=== PATIENT | female | born 1965 | race Caucasian/White ===

== ENCOUNTER 2017-11-29 09:39 | Outpatient (CLI) | payer BC ==
[2017-11-29 10:12] LABS: BASOPHILS % 0.3 (0.0-1.5); MEAN CORPUSCULAR HEMOGLOBIN 27.1 pg (28.0-34.0); MEAN CORPUSCULAR VOLUME 90.2 fl (80.0-100.0); MONOCYTES % 3.7 % (0.0-11.0); NEUTROPHILS # 4.3 # k/uL (1.4-7.7)
== END 2017-11-29 09:40 ==
LOC: LAB 09:39
PROVIDERS: ATTEND Registered Nurse
DX: D64.9 Anemia, unspecified (principal)
CPT/HCPCS: 36415; 85025

== ENCOUNTER 2018-01-14 14:35 | Outpatient (CLI) | payer BC ==
[2018-01-14 15:36] LABS: MEAN CORPUSCULAR HEMOGLOBIN 26.2 pg (28.0-34.0)
[2018-01-14 15:56] LABS: eGFR (Non-African) > 60
== END 2018-01-14 14:36 ==
LOC: LAB 14:35
PROVIDERS: ATTEND Internal Medicine
DX: R50.9 Fever, unspecified (principal)
CPT/HCPCS: 36415; 80053; 84439; 84443; 85027; 85651; 86140